=== PATIENT | female | born 1990 | race Caucasian/White ===

== ENCOUNTER 2020-04-23 05:43 | Emergency (ER) | payer OTHER ==
[2020-04-23] MEDS ORDERED: LORazepam 2 MG/ML INJ IM STA (06:04)
[2020-04-23] MEDS ORDERED: ZIPRASIDONE 20 MG VIAL IM STA (06:04)
[2020-04-23] MEDS ORDERED: SODIUM CHLORIDE 0.9% 1,000 ML IV STA (06:05)
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
[2020-04-23 06:52] LABS: Basophils % (A) 1 %; Eosinophils # (A) 0.1 k/uL (0-0.7); Eosinophils % (A) 2 %; HCT 42.2 % (34.0-46.0); HGB 13.1 gm/dL (11.4-16.0); Lymphocytes # (A) 3.5 k/uL (1.0-4.8); Lymphocytes % (A) 53 %; MCH 29.6 pg (25.0-35.0); MCHC 31.1 g/dL (31.0-37.0); MCV 95.3 fL (80.0-100.0); Mean Platelet Volume 6.9; Monocytes # (A) 0.4 k/uL (0-1.0); Monocytes % (A) 6 %; Neutrophils # (A) 2.4 k/uL (1.3-7.7); Neutrophils % (A) 37 %; Platelet Count 426 k/uL (150-450); RBC 4.43 m/uL (3.80-5.40); RDW 13.5 % (11.5-15.5); WBC 6.5 k/uL (3.8-10.6)
[2020-04-23 07:06] LABS: ALT 13 U/L (4-34); AST 24 U/L (14-36); Acetaminophen <10.0 ug/mL; African American GFR (CKD) >90 (>60 ml/min/1.73 sqM); Albumin 4.6 g/dL (3.5-5.0); Alkaline Phosphatase 41 U/L (38-126); Anion Gap 14 mmol/L; Blood Urea Nitrogen 9 mg/dL (7-17); Calcium 9.4 mg/dL (8.4-10.2); Carbon Dioxide 21 mmol/L (22-30); Chloride 108 mmol/L (98-107); Glucose 102 mg/dL (74-99); Non-African American GFR(CKD) >90 (>60 ml/min/1.73 sqM); Potassium 3.5 mmol/L (3.5-5.1); Salicylate <1.0 mg/dL; Sodium 143 mmol/L (137-145); Total Bilirubin 0.4 mg/dL (0.2-1.3); Total Protein 7.6 g/dL (6.3-8.2)
[2020-04-23 07:11] LABS: Alcohol 169 mg/dL
[2020-04-23 09:29] LABS: Appearance,Urine Cloudy (Clear); Bacteria,Urine Few /hpf; Bilirubin,Urine Negative (Negative); Blood,Urine Moderate (Negative); Color,Urine Light Yellow; Glucose,Urine (UA) Negative (Negative); Ketones,Urine Negative (Negative); Leukocyte Esterase,Urine Negative (Negative); Mucus,Urine Occasional /hpf; Nitrite,Urine Positive (Negative); Protein,Urine Negative (Negative); RBC,Urine >182 /hpf (0-5); Specific Gravity,Urine 1.006 (1.001-1.035); Squamous Epithelial Cell,Urine 2 /hpf (0-4); Urobilinogen,Urine <2.0 mg/dL (<2.0); WBC,Urine 79 /hpf (0-5)
[2020-04-23 09:41] LABS: Amphetamine Screen,Urine Not Detected (NotDetected); Barbiturate Screen,Urine Not Detected (NotDetected); Benzodiazepines Screen,Urine Not Detected (NotDetected); Cocaine Screen,Urine Not Detected (NotDetected); Methadone Screen, Urine Not Detected (NotDetected); Opiate Screen,Urine Not Detected (NotDetected); Oxycodone Screen, Urine Not Detected (NotDetected); Phencyclidine Screen,Urine Not Detected (NotDetected); Tricyclic Antidepressant,Urine Not Detected (NotDetected); Urn Cannabinoid Scrn Detected (NotDetected)
[2020-04-23] MEDS ORDERED: CEPHALEXIN 500 MG CAP PO STA (13:11)
[2020-04-23 22:32] VITALS: BP 118/68; PULSE 78; RESP 18; TEMP 98.2
== END 2020-04-24 01:33 ==
LOC: EC 05:43
DX: Z03.818 Encounter for observation for suspected exposure to other biological agents ruled out (principal); F32.9 Major depressive disorder, single episode, unspecified; R45.851 Suicidal ideations; R45.6 Violent behavior; F43.10 Post-traumatic stress disorder, unspecified; Z78.1 Physical restraint status; Z79.899 Other long term (current) drug therapy
CPT/HCPCS: 82075; 36415; 93005; 80053; 85025; 81001; 81025; 80306; 83520; 80329; 80320; 87635; 99285; 96372 ×2; 96360; J2060; J3486; 87086

== ENCOUNTER 2020-06-30 20:55 | Emergency (ER) | payer OTHER ==
[2020-06-30] MEDS ORDERED: SODIUM CHLORIDE 0.9% 500 ML 500 ML IV STA (21:08)
[2020-06-30 22:04] LABS: Basophils # (A) 0.1 k/uL (0-0.2); Basophils % (A) 2 %; Eosinophils # (A) 0.2 k/uL (0-0.7); Eosinophils % (A) 4 %; HCT 40.8 % (34.0-46.0); HGB 13.9 gm/dL (11.4-16.0); Lymphocytes # (A) 2.8 k/uL (1.0-4.8); Lymphocytes % (A) 47 %; MCH 30.6 pg (25.0-35.0); MCHC 34.2 g/dL (31.0-37.0); MCV 89.5 fL (80.0-100.0); Mean Platelet Volume 7.2; Monocytes # (A) 0.4 k/uL (0-1.0); Monocytes % (A) 7 %; Neutrophils # (A) 2.3 k/uL (1.3-7.7); Neutrophils % (A) 39 %; Platelet Count 342 k/uL (150-450); RBC 4.56 m/uL (3.80-5.40); RDW 12.7 % (11.5-15.5)
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
[2020-06-30 22:20] LABS: ALT 14 U/L (4-34); AST 28 U/L (14-36); Acetaminophen <10.0 ug/mL; African American GFR (CKD) >90 (>60 ml/min/1.73 sqM); Albumin 4.1 g/dL (3.5-5.0); Alcohol <10 mg/dL; Alkaline Phosphatase 37 U/L (38-126); Anion Gap 4 mmol/L; Blood Urea Nitrogen 20 mg/dL (7-17); Carbon Dioxide 28 mmol/L (22-30); Chloride 108 mmol/L (98-107); Glucose 88 mg/dL (74-99); Non-African American GFR(CKD) >90 (>60 ml/min/1.73 sqM); Potassium 4.2 mmol/L (3.5-5.1); Salicylate <1.0 mg/dL; Sodium 140 mmol/L (137-145); Total Bilirubin 0.5 mg/dL (0.2-1.3)
[2020-06-30] MEDS ORDERED: SODIUM CHLORIDE 0.9% 1,000 ML IV ONE (22:24)
[2020-06-30] MEDS ORDERED: LORazepam 2 MG/ML INJ IV PRN (22:29)
[2020-07-01 03:46] LABS: Appearance,Urine Cloudy (Clear); Bacteria,Urine Many /hpf; Bilirubin,Urine Negative (Negative); Blood,Urine Trace (Negative); Color,Urine Yellow; Glucose,Urine (UA) Negative (Negative); Hyaline Casts,Urine 4 /lpf (0-2); Ketones,Urine Negative (Negative); Leukocyte Esterase,Urine Small (Negative); Mucus,Urine Many /hpf; Nitrite,Urine Positive (Negative); Protein,Urine Trace (Negative); RBC,Urine 3 /hpf (0-5); Specific Gravity,Urine 1.026 (1.001-1.035); Squamous Epithelial Cell,Urine 2 /hpf (0-4); WBC,Urine 6 /hpf (0-5)
[2020-07-01 03:57] LABS: Amphetamine Screen,Urine Not Detected (NotDetected); Barbiturate Screen,Urine Not Detected (NotDetected); Benzodiazepines Screen,Urine Detected (NotDetected); Cocaine Screen,Urine Not Detected (NotDetected); Methadone Screen, Urine Not Detected (NotDetected); Opiate Screen,Urine Not Detected (NotDetected); Oxycodone Screen, Urine Not Detected (NotDetected); Phencyclidine Screen,Urine Not Detected (NotDetected); Tricyclic Antidepressant,Urine Detected (NotDetected); Urn Cannabinoid Scrn Detected (NotDetected)
[2020-07-01] MEDS: SODIUM CHLORIDE 0.9% 1,000 ML IV SCH ×3 (08:09→16:15)
[2020-07-01] MEDS ORDERED: LORazepam 1 MG TAB PO STA (10:25)
[2020-07-01] MEDS ORDERED: MELATONIN 3 MG TABLET PO PRN (16:42)
[2020-07-01] MEDS: ESCITALOPRAM 5 MG TAB PO SCH (17:16)
[2020-07-01] MEDS: QUEtiapine 50 MG TAB PO SCH (21:16)
[2020-07-01] MEDS: GABAPENTIN 100 MG CAP PO SCH (22:03)
[2020-07-02] MEDS: SODIUM CHLORIDE 0.9% 1,000 ML IV SCH ×4 (01:10→21:05)
[2020-07-02] MEDS: ESCITALOPRAM 5 MG TAB PO SCH (09:14)
[2020-07-02] MEDS: GABAPENTIN 100 MG CAP PO SCH ×2 (16:52→21:58)
[2020-07-02] MEDS: QUEtiapine 50 MG TAB PO SCH (21:02)
[2020-07-02] MEDS: TETRAHYDROZOLINE 0.05% OPHTH DROPS 15 ML BTL BOTH EYES PRN (21:59)
[2020-07-03] MEDS: SODIUM CHLORIDE 0.9% 1,000 ML IV SCH (05:14)
[2020-07-03] MEDS: TETRAHYDROZOLINE 0.05% OPHTH DROPS 15 ML BTL BOTH EYES PRN (05:44)
[2020-07-03 08:29] VITALS: BP 118/64; TEMP 98.9
[2020-07-03] MEDS: ESCITALOPRAM 5 MG TAB PO SCH (08:31)
[2020-07-03 08:35] VITALS: PULSE 63; RESP 18
[2020-07-03] MEDS: GABAPENTIN 100 MG CAP PO SCH (08:53)
== END 2020-07-03 15:37 ==
LOC: EC 20:55
DX: F23 Brief psychotic disorder (principal); T43.592A Poisoning by other antipsychotics and neuroleptics, intentional self-harm, initial encounter; F41.9 Anxiety disorder, unspecified; F32.9 Major depressive disorder, single episode, unspecified; F17.200 Nicotine dependence, unspecified, uncomplicated; Z79.899 Other long term (current) drug therapy; Z20.822 Contact with and (suspected) exposure to COVID-19
CPT/HCPCS: 36415; 70450; 80053; 80143; 80306; 80320; 81001; 81025; 82075; 83520; 84443; 85025; 87635; 93005; 96360; 96361; 99285

== ENCOUNTER 2020-12-12 03:22 | Emergency (ER) | payer OTHER ==
[2020-12-12 03:39] VITALS: BP 108/77; PULSE 69; RESP 18; TEMP 97.6
[2020-12-12] MEDS ORDERED: IBUPROFEN 800 MG TAB PO STA (04:15)
[2020-12-12] MEDS ORDERED: predniSONE 20 MG TAB PO STA (04:15)
--- NOTE | 2020-12-12 04:18 | ED ---
Skin/Abscess/FB HPI - General Chief complaint: Skin/Abscess/Foreign Body Stated complaint: Rash Time Seen by Provider: 12/12/20 03:27 Source: patient Mode of arrival: ambulatory - Related Data Home Medications Medication Instructions Recorded Confirmed Carboxymethylcellulose Sodium 1 drop BOTH EYES BID 04/23/20 06/30/20 [Refresh Tears] Gabapentin [Neurontin] 100 mg PO TID 04/23/20 06/30/20 Naproxen 500 mg PO BID PRN 04/23/20 06/30/20 Escitalopram [Lexapro] 15 mg PO DAILY 06/30/20 07/01/20 Lidocaine 5% Cream 1 applic TOPICAL HS PRN 06/30/20 06/30/20 Melatonin 3 mg PO HS PRN 06/30/20 06/30/20 QUEtiapine [SEROquel] 150 mg PO HS 06/30/20 07/01/20 Vivitrol 380mg Injection 380 mg IM Q28D 07/01/20 07/01/20 Allergies Allergy/AdvReac Type Severity Reaction Status Date / Time No Known Allergies Allergy Verified 12/12/20 03:39 Review of Systems ROS Statement: Those systems with pertinent positive or pertinent negative responses have been documented in the HPI. ROS Other: All systems not noted in ROS Statement are negative. Past Medical History Past Medical History: No Reported History History of Any Multi-Drug Resistant Organisms: None Reported Additional Past Surgical History / Comment(s): fallopian tub removal Past Psychological History: Anxiety, Depression Smoking Status: Current every day smoker Past Alcohol Use History: Occasional Past Drug Use History: None Reported Course Vital Signs 12/12/20 03:36 Temperature 97.6 F Pulse Rate 69 Respiratory 18 Rate Blood Pressure 108/77 O2 Sat by Pulse 99 Oximetry Disposition Clinical Impression: Poison krysten Disposition: HOME SELF-CARE Condition: Good Instructions (If sedation given, give patient instructions): Poison Krysten (ED) Is patient prescribed a controlled substance at d/c from ED?: No Referrals: Nonstaff,Physician [Primary Care Provider] - 1-2 days
== END 2020-12-12 04:25 | disposition home or self-care (01) ==
LOC: EC 03:22
DX: L23.7 Allergic contact dermatitis due to plants, except food (principal); F32.9 Major depressive disorder, single episode, unspecified; F41.9 Anxiety disorder, unspecified; F17.200 Nicotine dependence, unspecified, uncomplicated
CPT/HCPCS: 99282